=== PATIENT | male | born 1945 | race Caucasian/White ===

== ENCOUNTER 2020-08-21 08:05 | Day surgery (SDC) | payer BC, MEDICARE ==
[2020-08-21] VITALS (13 sets, daily range): BP systolic 100–166; BP diastolic 52–86
[~2020-08-21] VITALS: Ht 172.7 cm; Wt 72.2 kg
[2020-08-21] MEDS ORDERED: verapamil 2.5 mg/ml inj IV ONE (08:22)
[2020-08-21] MEDS ORDERED: midazolam 1 mg/ML 2ml injection ONE ×3 (08:23→09:44)
[2020-08-21] MEDS ORDERED: heparin 1,000unit/ml 10ml vial 10 ML ONE ×2 (08:23→10:07)
[2020-08-21] MEDS ORDERED: LIDOcaine 1% (10mg/ml)w/preservative injection 20ml MDV ONE (08:23)
[2020-08-21] MEDS ORDERED: fentaNYL/PF 50MCG/1 ML 2ML syringe ONE ×2 (08:23→10:01)
[2020-08-21] MEDS ORDERED: nitroGLYCERIN-Tridil 50MG/D5W 250 ML IV ONE (08:23)
[2020-08-21] MEDS ORDERED: iohexol 350MG/ML 100ml bottle IV ONE ×2 (08:26→10:05)
[2020-08-21] MEDS ORDERED: iohexol 350 MG/ML 50ML vial IV ONE (08:26)
[2020-08-21] MEDS ORDERED: ATOR80TA PO (08:44)
[2020-08-21] MEDS ORDERED: ALFU10TA10 PO (08:44)
[2020-08-21] MEDS ORDERED: MULT-1085 PO (08:44)
[2020-08-21] MEDS ORDERED: normal saline 1,000 ML IV SCH (08:55)
[2020-08-21] MEDS ORDERED: diphenhydrAMINE 25mg capsule PO PRN (08:55)
[2020-08-21 09:11] LABS: BASOPHILS % (AUTO) 0.7 % (0-1); EOSINOPHILS # (AUTO) 0.2 X10'3 (0-0.9); EOSINOPHILS % (AUTO) 5.3 % (0-6); HEMATOCRIT 42.8 % (42.0-52.0); HEMOGLOBIN 14.6 g/dl (14.0-17.9); LYMPHOCYTES # (AUTO) 1.8 X10'3 (1.1-4.8); LYMPHOCYTES % (AUTO) 39.8 % (21-51); MEAN CORPUSCULAR HEMOGLOBIN 35.2 PG (27.0-31.0); MEAN CORPUSCULAR HGB CONC 34.2 g/dL (33.0-36.5); MEAN CORPUSCULAR VOLUME 102.7 FL (78-98); MEAN PLATELET VOLUME 8.1 FL (7.4-10.4); MONOCYTES # (AUTO) 0.5 X10'3 (0-0.9); MONOCYTES % (AUTO) 11.5 % (2-12); NEUTROPHILS % (AUTO) 42.7 % (42-75); PLATELET COUNT 194 X10'3 (140-440); RED BLOOD COUNT 4.16 X10'6 (4.70-6.10); RED CELL DISTRIBUTION WIDTH 13.8 % (11.5-14.5); WHITE BLOOD COUNT 4.6 X10'3 (4.5-11.0)
[2020-08-21 09:20] LABS: ALBUMIN 4.3 G/DL (3.4-5.0); ANION GAP 8 (8-16); BLOOD UREA NITROGEN 26 MG/DL (7-18); BUN/CREATININE RATIO 26.8 (5.4-32.0); CHLORIDE 106 MMOL/L (99-107); CREATININE 0.97 MG/DL (0.60-1.10); GLUCOSE 90 MG/DL (70-104); MAGNESIUM 2.1 MG/DL (1.5-2.4); POTASSIUM 3.6 MMOL/L (3.5-5.1); SODIUM 141 MMOL/L (135-145); TOTAL CARBON DIOXIDE 27.1 MMOL/L (24-32); eGFR 76 ML/MIN
[2020-08-21] MEDS ORDERED: proCHLORperazine 10 MG/2 ml inj ONE (09:54)
[2020-08-21] MEDS ORDERED: clopidogrel 300mg tablet ONE (10:38)
[2020-08-21] MEDS ORDERED: normal saline 1000ml 1,000 ML IV SCH (11:15)
[2020-08-21] MEDS ORDERED: HYDROcodone/acetaminophen 10/325mg tab PO PRN (11:15)
[2020-08-21] MEDS ORDERED: proCHLORperazine 10 MG/2 ml inj IV PRN (11:15)
[2020-08-21] MEDS ORDERED: HYDROcodone/acetaminophen 5mg/325mg tablet PO PRN (11:15)
[2020-08-21] MEDS ORDERED: ondansetron/PF 4mg/2ml inj IV PRN (11:15)
== END 2020-08-21 15:30 | disposition home or self-care (01) ==
LOC: SSTAY O 08:05
PROVIDERS: ATTEND Internal Medicine Cardiovascular Disease
DX: R94.39 Abnormal result of other cardiovascular function study (principal); I25.10 Atherosclerotic heart disease of native coronary artery without angina pectoris; E78.00 Pure hypercholesterolemia, unspecified; Z98.890 Other specified postprocedural states; Z72.89 Other problems related to lifestyle; Z79.899 Other long term (current) drug therapy; Z82.49 Family history of ischemic heart disease and other diseases of the circulatory system
CPT/HCPCS: 36415; 80048; 83735; 85025; 85610; 93005; 93458; 99152; 99153; C1751; C1769; C1874; C1894; C9600; J0780; J1644; J2001; J2250; J3010; J7030; Q0163; Q9967; A4620; C1725; J3490